=== PATIENT | male | born 2000 | race Caucasian/White ===

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

== ENCOUNTER → 2021-03-25 15:50 | Outpatient (CLI) | payer OTHER, SELFPAY ==
[2021-03-25 17:08] LABS: COVID19 -Nasal RAPID POSITIVE (Negative)
== END ==
PROVIDERS: Referring Provider Nurse Practitioner Family; Visit Provider Nurse Practitioner Family
DX: U07.1 COVID-19 (principal); Z20.822 Contact with and (suspected) exposure to COVID-19
CPT/HCPCS: 87635

== ENCOUNTER 2021-08-01 10:21 | Emergency (ER) | payer OTHER, SELFPAY ==
[2021-08-01 10:35] VITALS: TEMP 36.8
[2021-08-01 11:00] VITALS: BP 118/65; PULSE 87; RESP 18; TEMP 36.8; O2SAT 99
[2021-08-01 11:16] LABS: Add Manual Diff / Slide Review NO; Basophils Absolute Auto 0 /uL (0-100); Basophils Percent Auto 0.3 % (0-2); Eosinophils Absolute Auto 0 /uL (0-450); Eosinophils Percent Auto 0.1 % (2-4); Hematocrit 38.7 % (41-53); Hemoglobin 14.1 g/dL (13.5-17.5); Lymphocytes Absolute Auto 1000 /uL (1100-4500); Lymphocytes Percent Auto 16.7 % (25-40); Mean Corpuscular HGB Conc 36.5 % (30-36); Mean Corpuscular Hemoglobin 29.8 PG (26-34); Mean Corpuscular Volume 81.7 fL (80-100); Monocytes Absolute Auto 1000 /uL (0-900); Monocytes Percent Auto 16.8 % (3-14); Neutrophils Absolute Auto 3900 /uL (1500-7000); Neutrophils Percent Auto 66.1 % (50-75); Platelet Count 244 X10^3/uL (150-400); Red Blood Cell Count 4.74 X10^6/uL (4.5-5.9); Red Cell Distribution Width 12.8 % (11.6-14.8); White Blood Cell Count 5.9 X10^3/uL (4.5-11.0)
[2021-08-01] MEDS: ONDANSETRON 4 MG/2 ML INJ IV (11:19)
[2021-08-01 11:32] LABS: Alanine Aminotransferase 16 IU/L (<50); Albumin 4.8 g/dL (3.5-5.0); Albumin Globulin Ratio 1.1 (1.0-2.8); Alkaline Phosphatase 98 U/L (38-126); Aspartate Aminotransferase 24 IU/L (17-59); BUN Creatinine Ratio 21.8 (6-22); Bilirubin Total 1.7 mg/dL (0.2-1.3); Blood Urea Nitrogen 17 mg/dL (9-20); Calcium 9.5 mg/dL (8.4-10.2); Carbon Dioxide 25 mmol/L (22-32); Chloride 100 mmol/L (98-107); Estimated Glomerular Filt Rate > 60 mL/min (>60); Globulin 4.4 g/dL (1.7-4.1); Glucose 122 mg/dL (70-100); HEMOLYSIS < 15 (0-50); Lipase 40 U/L (23-300); Sodium 136 mmol/L (137-145); Total Protein 9.2 g/dL (6.3-8.2)
--- NOTE | 2021-08-01 11:32 | ED_ITS ---
HPI - Abdominal Pain General Chief Complaint: Abdominal Pain Stated Complaint: throwing up 2 xdays fever Time Seen by Provider: 08/01/21 11:00 Source: patient Mode of arrival: Ambulatory Limitations: no limitations History of Present Illness HPI narrative: This is a 20-year-old male with history of being on Humira for eczema, patient stopped 3 months ago and started 1st dose of strongly ora for psoriasis. He has not actually had his 1st injection. Patient is not on any other daily medications. He, his entire family including his 2, and baby have all had diarrhea starting Thursday. Patient had a temperature of 101? F at home. He has had nausea and vomiting. He had pain immediately after vomiting but does not have persistent abdominal pain. No chest pain or shortness of breath. No black or bloody stools. No blood in his emesis. Patient states little bit decreased urine output but is still urinating. Denies any drug allergies. He does smoke tobacco, occasional marijuana. Related Data Home Medications Medication Instructions Recorded Confirmed adalimumab 40 mg/0.8 mL 40 mg SUBCUT Q2W 05/10/19 03/25/21 subcutaneous syringe kit (Humira) Previous Rx's Medication Instructions Recorded mupirocin 2 % topical ointment 1 applic TOP TID #30 gram 01/25/20 ondansetron 4 mg disintegrating 4 mg PO QID PRN #10 tab 08/01/21 tablet Allergies Allergy/AdvReac Type Severity Reaction Status Date / Time No Known Drug Allergies Allergy Verified 01/25/20 14:52 Review of Systems Review of Systems ROS Unobtainable: All systems reviewed & are unremarkable except as noted in HPI and below Patient History Medical History Cellulitis Social History Smoking Status: Current every day smoker Smoking Status: Current every day smoker alcohol intake frequency: other Substance Use Type: marijuana Exam Narrative Exam Narrative: GENERAL: Alert and oriented x three, male in mild distress. HEENT: Head normocephalic, atraumatic, EOMI, pupils reactive, face symmetric, moist mucous membranes NECK: Supple, full range of motion CARDIOVASCULAR: Regular rate and rhythm without murmurs, rubs or gallops. RESPIRATORY: Breath sounds equal bilaterally, no wheezes rales or rhonchi. ABDOMEN: Soft, nontender. Nondistended. Normoactive bowel sounds all 4 quadrants. No guarding or rebound, rigidity, no mass : No CVA tenderness EXTREMITIES: Normal range of motion, no clubbing or edema. Neurovascularly intact NEUROLOGICAL: Cranial nerves II through XII grossly intact. Moving all ext remities SKIN: Warm, dry, no petechiae, no rashes or lesions. Initial Vital Signs Initial Vital Signs: Vital Signs Temperature 98.2 F 08/01/21 10:35 Course Orders Ordered: Discontinued Medications Sodium Chloride (Normal Saline 0.9%) 1,000 mls @ 1,000 mls/hr IV BOLUS ONE Stop: 08/01/21 13:19 Last Infusion: 08/01/21 13:20 Dose: 0 mls/hr Documented by: Admin: 08/01/21 12:52 Dose: 1,000 mls/hr Documented by: BG Ondansetron HCl (Ondansetron 4 Mg/2 Ml Inj) 4 mg IV NOW ONE Stop: 08/01/21 11:01 Last Admin: 08/01/21 11:19 Dose: 4 mg Documented by: BG Reevaluation(s) Reevaluation #1: Patient is feeling much better after fluids. Time: 13:25 Vital Signs Vital signs: Vital Signs - 8 hr 08/01/21 10:35 08/01/21 11:00 08/01/21 12:00 Temperature 98.2 F 98.2 F 98.2 F Pulse Rate 87 70 Respiratory Rate 18 18 Blood Pressure 118/65 134/74 Pulse Oximetry 99 98 08/01/21 13:00 Temperature 98.2 F Pulse Rate 70 Respiratory Rate 18 Blood Pressure 130/70 Pulse Oximetry 99 MDM - Abdominal Pain Lab Data Result diagrams: 08/01/21 11:12 08/01/21 11:12 Labs: Lab Results 08/01/21 08/01/21 08/01/21 Range/Units 11:05 11:12 11:12 WBC 5.9 (4.5-11.0) X10^3/uL RBC 4.74 (4.5-5.9) X10^6/uL Hgb 14.1 (13.5-17.5) g/dL Hct 38.7 L (41-53) % MCV 81.7 (80-100) fL MCH 29.8 (26-34) PG MCHC 36.5 H (30-36) % RDW 12.8 (11.6-14.8) % Plt Count 244 (150-400) X10^3/uL Neut % (Auto) 66.1 (50-75) % Lymph % (Auto) 16.7 L (25-40) % [place] % (Auto) 16.8 H (3-14) % Eos % (Auto) 0.1 L (2-4) % Baso % (Auto) 0.3 (0-2) % Neut # (Auto) 3900 (7116-3714) /uL Lymph # (Auto) 1000 L (8284-1801) /uL [place] # (Auto) 1000 H (0-900) /uL Eos # (Auto) 0 (0-450) /uL Baso # (Auto) 0 (0-100) /uL Sodium 136 L (137-145) mmol/L Potassium 4.0 (3.4-5.1) mmol/L Chloride 100 (98-107) mmol/L Carbon Dioxide 25 (22-32) mmol/L BUN 17 (9-20) mg/dL Creatinine 0.78 (0.66-1.25) mg/dL Estimated GFR > 60 (>60) mL/min BUN/Creatinine Ratio 21.8 (6-22) Glucose 122 H (70-100) mg/dL Calcium 9.5 (8.4-10.2) mg/dL Total Bilirubin 1.7 H (0.2-1.3) mg/dL AST 24 (17-59) IU/L ALT 16 (<50) IU/L Alkaline Phosphatase 98 (38-126) U/L Total Protein 9.2 H (6.3-8.2) g/dL Albumin 4.8 (3.5-5.0) g/dL Globulin 4.4 H (1.7-4.1) g/dL Albumin/Globulin Ratio 1.1 (1.0-2.8) Lipase 40 (23-300) U/L Urine RBC (0-5/HPF) Urine WBC (0-5/HPF) Ur Squamous Epith Cells (0-5/HPF) Urine Bacteria (None) Ur Culture Indicated? SARS-CoV-2 (PCR) Negative (Negative) 08/01/21 Range/Units 12:09 WBC (4.5-11.0) X10^3/uL RBC (4.5-5.9) X10^6/uL Hgb (13.5-17.5) g/dL Hct (41-53) % MCV (80-100) fL MCH (26-34) PG MCHC (30-36) % RDW (11.6-14.8) % Plt Count (150-400) X10^3/uL Neut % (Auto) (50-75) % Lymph % (Auto) (25-40) % [place] % (Auto) (3-14) % Eos % (Auto) (2-4) % Baso % (Auto) (0-2) % Neut # (Auto) (5735-8230) /uL Lymph # (Auto) (6105-3644) /uL [place] # (Auto) (0-900) /uL Eos # (Auto) (0-450) /uL Baso # (Auto) (0-100) /uL Sodium (137-145) mmol/L Potassium (3.4-5.1) mmol/L Chloride (98-107) mmol/L Carbon Dioxide (22-32) mmol/L BUN (9-20) mg/dL Creatinine (0.66-1.25) mg/dL Estimated GFR (>60) mL/min BUN/Creatinine Ratio (6-22) Glucose (70-100) mg/dL Calcium (8.4-10.2) mg/dL Total Bilirubin (0.2-1.3) mg/dL AST (17-59) IU/L ALT (<50) IU/L Alkaline Phosphatase (38-126) U/L Total Protein (6.3-8.2) g/dL Albumin (3.5-5.0) g/dL Globulin (1.7-4.1) g/dL Albumin/Globulin Ratio (1.0-2.8) Lipase (23-300) U/L Urine RBC 1-5/hpf (0-5/HPF) Urine WBC 5-10/hpf H (0-5/HPF) Ur Squamous Epith Cells 0-1 /hpf (0-5/HPF) Urine Bacteria Few (2-10) H (None) Ur Culture Indicated? Specimen cultured SARS-CoV-2 (PCR) (Negative) Point of care testing: Urine Dip Bedside Urine Glucose Negative Bedside Urine Bilirubin + 1 Bedside Urine Ketone + 15 Urine Specific [place] 1.020 Bedside Urine Occult Blood +/- Bedside Urine pH 6.0 Bedside Urine Protein + 30 Bedside Urine Urobilinogen - Negative Bedside Urine Nitrite - Negative Bedside Urine Leukocytes + 70 Esterase ECG Data Attestation: I personally reviewed and interpreted this ECG as follows: Interpretation: Sinus rhythm with sinus arrhythmia. Rate 88 MI 110 QRS 82 QTC 404. No acute ST elevation depression appreciated. MDM Narrative Medical decision making narrative: This is a 20-year-old male with nausea and vomiting and diarrhea for the last 2 days patient or family has had similar symptoms. Suspect viral illness. Labs show slightly elevated bilirubin but no other acute changes he does not have any persistent abdominal pain I suspicion for gallstones or other acute intra-abdominal process is low. COVID swab is negative. Patient did have some ketones in urine, leukocyte esterase was present but patient is asymptomatic from a urinary standpoint. Patient was given fluids and Zofran and feels much better. Plan for as needed Zofran and return precautions. Discharge Plan Departure Patient Disposition: Home Clinical Impression: Nausea, vomiting and diarrhea Instructions: Nausea and Vomiting-Adult Activity Restrictions/Additional Instructions: Follow-up with your physician if symptoms are not improving. You may take Zofran 1 tablet every 6 hours as needed for nausea. Prescription sent to [facility] in [place]. Return for fevers that are persistent, increasing or new abdominal pain, persist ent vomiting, black or bloody stools, passing out, no urine output or other new or concerning symptoms. Prescriptions: New ondansetron 4 mg tablet,disintegrating 4 mg PO QID PRN (Reason: nausea and vomiting) Qty: 10 0RF No Action mupirocin 2 % ointment 1 applic TOP TID Qty: 30 0RF Humira 40 mg/0.8 mL syringe kit 40 mg SUBCUT Q2W 0RF Referrals: Miscellaneous,Doctor, [Primary Care Provider] -
[2021-08-01 11:43] LABS: COVID19 -Nasal RAPID Negative (Negative)
[2021-08-01 12:00] VITALS: BP 134/74; PULSE 70; RESP 18; TEMP 36.8; O2SAT 98
[2021-08-01 12:49] LABS: Bacteria Urine Few (2-10); Culture Indicated Urine Specimen Cultured; RBC Urine 1-5/HPF (0-5/HPF); Squamous Epithelial Cell Urine 0-1 /HPF (0-5/HPF); WBC Urine 5-10/HPF (0-5/HPF)
[2021-08-01] MEDS: SODIUM CHLORIDE 0.9% 1,000 ML 1000 ML IV (12:52)
[2021-08-01 13:00] VITALS: BP 130/70; PULSE 70; RESP 18; TEMP 36.8; O2SAT 99
== END 2021-08-01 13:48 | disposition home or self-care (01) ==
PROVIDERS: Emergency Provider Emergency Medicine
DX: R11.2 Nausea with vomiting, unspecified (principal); R50.9 Fever, unspecified; R19.7 Diarrhea, unspecified; R10.9 Unspecified abdominal pain; Z20.822 Contact with and (suspected) exposure to COVID-19
CPT/HCPCS: 36415; 80053; 81003; 81015; 83690; 85025; 87086; 87635; 93005; 93010; 96374; 99284; C9803; J2405

== ENCOUNTER → 2024-06-07 11:40 | Outpatient (CLI) | payer OTHER, SELFPAY | PROVIDERS: Visit Provider Physician Assistant Surgical | DX: J02.9 Acute pharyngitis, unspecified (principal) | CPT/HCPCS: 87070; 87077; 87147 ==

== ENCOUNTER 2024-06-21 14:26 | Emergency (ER) | payer OTHER, SELFPAY ==
[2024-06-21 14:30] VITALS: BP 130/87; PULSE 102; RESP 18; TEMP 36.8; O2SAT 99; BMI 19.3
[2024-06-21 15:04] LABS: Add Manual Diff / Slide Review NO; Basophils Absolute Auto 0 /uL (0-100); Basophils Percent Auto 0.4 % (0-2); Eosinophils Absolute Auto 0 /uL (0-450); Eosinophils Percent Auto 0.5 % (2-4); Hemoglobin 14.9 g/dL (13.5-17.5); Lymphocytes Absolute Auto 2000 /uL (1100-4500); Lymphocytes Percent Auto 26.1 % (25-40); Mean Corpuscular HGB Conc 35.4 % (30-36); Mean Corpuscular Hemoglobin 29.1 PG (26-34); Mean Corpuscular Volume 82.2 fL (80-100); Monocytes Absolute Auto 900 /uL (0-900); Monocytes Percent Auto 12.1 % (3-14); Neutrophils Absolute Auto 4700 /uL (1500-7000); Neutrophils Percent Auto 60.9 % (50-75); Platelet Count 288 X10^3/uL (150-400); Red Blood Cell Count 5.11 X10^6/uL (4.5-5.9); White Blood Cell Count 7.7 X10^3/uL (4.5-11.0)
[2024-06-21] MEDS: ONDANSETRON 4 MG/2 ML INJ IV (15:09)
[2024-06-21] MEDS: SODIUM CHLORIDE 0.9% 1,000 ML 1000 ML IV (15:09)
[2024-06-21 15:16] LABS: Alanine Aminotransferase 33 IU/L (<50); Albumin 4.8 g/dL (3.5-5.0); Alkaline Phosphatase 107 U/L (38-126); Aspartate Aminotransferase 38 IU/L (17-59); BUN Creatinine Ratio 18.5 (6-22); Bilirubin Total 2.5 mg/dL (0.2-1.3); Blood Urea Nitrogen 15 mg/dL (9-20); Calcium 10.2 mg/dL (8.4-10.2); Carbon Dioxide 19 mmol/L (22-32); Chloride 101 mmol/L (98-107); Estimated Glomerular Filt Rate > 60 mL/min (>60); Globulin 4.6 g/dL (1.7-4.1); Glucose 111 mg/dL (70-100); HEMOLYSIS < 15 (0-50); Lipase 85 U/L (23-300); Potassium 3.5 mmol/L (3.4-5.1); Sodium 138 mmol/L (137-145); Total Protein 9.4 g/dL (6.3-8.2)
[2024-06-21 15:47] LABS: Influenza A - CEPHEID Flu A NEGATIVE (NEGATIVE); Influenza B - CEPHEID Flu B NEGATIVE (NEGATIVE); Respiratory Syncytial Virus Negative (Negative)
[2024-06-21 15:48] LABS: COVID-19 CEPHEID 4-PLEX PCR Negative (Negative)
--- NOTE | 2024-06-21 16:07 | DI.CT.S_ITS ---
PROCEDURE: CT ABDOMEN PELVIS W CON INDICATIONS: RLQ pain, N/V/D TECHNIQUE: After the administration of intravenous contrast, axial sections acquired from the lung bases to the pubic symphysis. Coronal and sagittal reformats were performed. For radiation dose reduction, the following was used: automated exposure control, adjustment of mA and/or kV according to patient size. COMPARISON: None. FINDINGS: Image quality: Diagnostic. Lower Chest: No significant findings. ABDOMEN: Liver: No solid mass. Gallbladder: No radiopaque gallstones or wall thickening. Biliary ducts: No biliary dilation. Pancreas: No ductal dilation. Spleen: Size is within normal limits. Adrenal Glands: No adrenal nodules. Kidneys and Ureters: No hydronephrosis. No solid mass. No complex renal cystic lesion which requires follow up. Stomach and Bowel: Liquid stool material is seen throughout the colon and rectum with air-fluid levels. Nondilated fluid-filled loops of small bowel in the mid to lower abdomen. Appendix is not well visualized, but no pericecal inflammatory changes. Peritoneum: No abnormal intraperitoneal fluid. No free air. Ventral Wall: No significant ventral hernia. Abdominal Nodes: No retroperitoneal or mesenteric adenopathy by size criteria. Vessels: Aorta and inferior vena cava are normal in size. PELVIS: Pelvic Organs: Unremarkable. Bladder: No bladder wall thickening, accounting for underdistention. Pelvic Nodes: No enlarged lymph nodes. Miscellaneous: No inguinal hernias are seen. Bones: Q mildly irregular appearance of the sacroiliac joints bilaterally with suspected small osseous erosions that may indicate sacroiliitis. IMPRESSION: 1. Prominent but nondilated fluid-filled loops of small and large bowel are suspicious for a nonspecific enterocolitis, although other causes of diarrhea are not excluded. 2. Appendix not well visualized, but no pericecal inflammatory changes are seen in the right abdomen. 3. Suspected small osseous erosions along the sacroiliac joints bilaterally that may indicate sacroiliitis. Approved by: Norberto Frank M.D. on 06/21/2024 at 16:50
[2024-06-21] MEDS: HYOSCYAMINE 0.125 MG TABLET PO (16:32)
[2024-06-21 16:36] LABS: Adenovirus F 40/41 Not Detected (Not Detect); Astrovirus Detected (Not Detect); Campylobacter Not Detected (Not Detect); Clostridium difficile toxin AB Not Detected (Not Detect); Cryptosporidium Not Detected (Not Detect); Cyclospora cayetanensis Not Detected (Not Detect); Entamoeba histolytica Not Detected (Not Detect); Enteroaggregative E.coli Not Detected (Not Detect); Enteropathogenic E.coli Not Detected (Not Detect); Enterotoxigenic E.coli It/st Not Detected (Not Detect); Giardia lamblia Not Detected (Not Detect); Norovirus GI/GII Not Detected (Not Detect); Plesiomonsa shigelloides Not Detected (Not Detect); Rotavirus A Not Detected (Not Detect); Salmonella Not Detected (Not Detect); Sapovirus Not Detected (Not Detect); Shiga-like toxin-prod E.coli Not Detected (Not Detect); Shigella/Enteroinvasive E.coli Not Detected (Not Detect); Vibrio Not Detected (Not Detect); Vibrio cholerae Not Detected (Not Detect); Yersinia enterocolitica Not Detected (Not Detect)
--- NOTE | 2024-06-21 17:05 | ED.NAVMDI ---
HPI - Nausea/Vomiting/Diarrhea <Michelle Barry PA-C - Last Filed: 06/21/24 17:25> General Chief complaint: Nausea/Vomiting/Diarrhea Stated complaint: N/V/D Time Seen by Provider: 06/21/24 15:53 History of Present Illness HPI Narrative: 23-year-old male with past medical history psoriatic arthritis, IBD, on Stelara every 8 weeks presents to the ED with 3 days of nausea, vomiting, watery diarrhea. No fever, chills, chest pain, shortness of breath, dysuria, lightheadedness, dizziness, syncope. Patient states that his symptoms started after he spent the day at the [place] with his two little children. Symptoms started with a watery diarrhea as well as vomiting. Patient states that his diarrhea stopped at mid day yesterday, however he is continued to vomit intractably. Related Data Home Medications Medication Instructions Recorded Confirmed ustekinumab 90 mg/mL subcutaneous mg SUBCUT 06/21/24 06/21/24 syringe (Stelara) Previous Rx's Medication Instructions Recorded hyoscyamine sulfate 0.125 mg 0.125 mg PO BID-QID #20 tabs 06/21/24 tablet (Levsin) hyoscyamine sulfate 0.125 mg 0.125 mg PO BID-QID PRN dyspepsia 06/21/24 tablet (Oscimin) #20 tabs ondansetron 4 mg disintegrating 4 mg PO Q8H PRN nausea and 06/21/24 tablet vomiting #10 tabs ondansetron 4 mg disintegrating 4 mg PO Q8H PRN nausea and 06/21/24 tablet vomiting #10 tabs Allergies Allergy/AdvReac Type Severity Reaction Status Date / Time No Known Drug Allergies Allergy Verified 06/21/24 14:18 Review of Systems <Michelle Barry PA-C - Last Filed: 06/21/24 17:25> Constitutional Constitutional: Denies chills, Denies fatigue, Denies fever(s), Denies frequent falls, Denies lethargy and Denies weakness Eyes Eyes: Denies change in vision, Denies eye discharge, Denies irritation and Denies loss of vision ENT Ears, Nose, Mouth, and Throat: Denies change in voice, Denies dizziness, Denies neck pain, Denies sore throat and Denies throat swelling Cardiovascular Cardiovascular: Denies chest pain, Denies irregular heart rhythm, Denies lightheadedness, Denies palpitations, Denies dyspnea, Denies dyspnea on exertion and Denies orthopnea Respiratory Respiratory: Denies cough, Denies dyspnea, Denies dyspnea on exertion and Denies wheezing Gastrointestinal Gastrointestinal: Denies abdominal pain, Denies change in bowel habits, Reports cramping, Reports diarrhea, Reports nausea and Reports vomiting Musculoskeletal Musculoskeletal: Denies neck pain and Denies numbness Integumentary/Breasts Skin/Breast: Denies pruritus, Denies erythema, Denies rash and Denies wounds Neurologic Neurologic: Denies behavioral changes, Denies confusion, Denies dizziness, Denies frequent falls, Denies loss of vision, Denies numbness and Denies weakness Psychiatric Psychiatric: Denies anxiety, Denies behavioral changes, Denies confusion, Denies depression, Denies homicidal ideation and Denies suicidal ideation Endocrine Endocrine: Denies fatigue, Denies flushing and Denies palpitations Hematologic/Lymphatic Hematologic/Lymphatic: Denies easy bruising Allergic/Immunologic Allergic/Immunologic: Denies urticaria, Denies throat swelling and Denies wheezing Patient History <Michelle Barry PA-C - Last Filed: 06/21/24 17:25> Medical History Cellulitis Social History Smoking Status: Current every day smoker Smoking Status: Current every day smoker tobacco type: vaping alcohol intake frequency: other Exam <Michelle Barry PA-C - Last Filed: 06/21/24 17:25> Narrative Exam Narrative: Const General:?cooperative, healthy appearing and comfortable [facility] Head:?normal to inspection Ears:?hearing grossly normal bilaterally Nose:?external nose normal Face and sinus:?normal facial exam and sinuses nontender Mouth:?oral mucosae normal Throat:?posterior oropharynx normal Eyes General:?appearance normal, both eyes and all related structures Neck Neck:?normal visual inspection and no lymphadenopathy noted Resp Effort & Inspection:?normal respiratory effort Auscultation:?clear to auscultation bilaterally Cardio Rate:?regular rate Rhythm:?regular rhythm GI Abdomen is soft, nondistended. Tender to palpation in the right lower quadrant. Neuro General:?patient alert, patient awake and patient oriented x3 Initial Vital Signs Initial Vital Signs: Vital Signs Temperature 98.2 F 06/21/24 14:30 Pulse Rate 102 H 06/21/24 14:30 Respiratory Rate 18 06/21/24 14:30 Blood Pressure 130/87 06/21/24 14:30 Pulse Oximetry 99 06/21/24 14:30 Oxygen Delivery Method Room Air 06/21/24 14:30 <Ok Barnett MD - Last Filed: 06/22/24 07:08> Initial Vital Signs Initial Vital Signs: Vital Signs Temperature 98.2 F 06/21/24 14:30 Pulse Rate 102 H 06/21/24 14:30 Respiratory Rate 18 06/21/24 14:30 Blood Pressure 130/87 06/21/24 14:30 Pulse Oximetry 99 06/21/24 14:30 Oxygen Delivery Method Room Air 06/21/24 14:30 Course <Michelle Barry PA-C - Last Filed: 06/21/24 17:25> Orders Ordered: Discontinued Medications Hyoscyamine (Hyoscyamine 0.125 Mg Tablet) 0.125 mg PO NOW ONE Stop: 06/21/24 16:09 Last Admin: 06/21/24 16:32 Dose: 0.125 mg Documented By: PEDRO Sodium Chloride (Normal Saline 0.9%) 1,000 mls @ 1,000 mls/hr IV BOLUS ONE Stop: 06/21/24 16:05 Last Infusion: 06/21/24 17:35 Dose: Infused Documented By: Admin: 06/21/24 15:09 Dose: 1,000 mls/hr Documented By: DANNY Ondansetron HCl (Ondansetron 4 Mg/2 Ml Inj) 4 mg IV NOW PRN PRN Reason: Nausea And Vomiting Last Admin: 06/21/24 15:09 Dose: 4 mg Documented By: DANNY Ondansetron HCl (Ondansetron 4 Mg Odt) 4 mg SL NOW PRN PRN Reason: Nausea And Vomiting Vital Signs Vital signs: Vital Signs - 8 hr 06/21/24 14:30 Temperature 98.2 F Pulse Rate 102 H Respiratory Rate 18 Blood Pressure 130/87 Pulse Oximetry 99 Oxygen Delivery Method Room Air <Ok Barnett MD - Last Filed: 06/22/24 07:08> Orders Ordered: Discontinued Medications Hyoscyamine (Hyoscyamine 0.125 Mg Tablet) 0.125 mg PO NOW ONE Stop: 06/21/24 16:09 Last Admin: 06/21/24 16:32 Dose: 0.125 mg Documented By: PEDRO Sodium Chloride (Normal Saline 0.9%) 1,000 mls @ 1,000 mls/hr IV BOLUS ONE Stop: 06/21/24 16:05 Last Infusion: 06/21/24 17:35 Dose: Infused Documented By: Admin: 06/21/24 15:09 Dose: 1,000 mls/hr Documented By: DANNY Ondansetron HCl (Ondansetron 4 Mg/2 Ml Inj) 4 mg IV NOW PRN PRN Reason: Nausea And Vomiting Last Admin: 06/21/24 15:09 Dose: 4 mg Documented By: DANNY Ondansetron HCl (Ondansetron 4 Mg Odt) 4 mg SL NOW PRN PRN Reason: Nausea And Vomiting Vital Signs Vital signs: Vital Signs - 8 hr 06/21/24 14:30 Temperature 98.2 F Pulse Rate 102 H Respiratory Rate 18 Blood Pressure 130/87 Pulse Oximetry 99 Oxygen Delivery Method Room Air MDM - Nausea/Vomiting/Diarrhea <Michelle Barry PA-C - Last Filed: 06/21/24 17:25> Lab Data 06/21/24 14:50 06/21/24 14:50 Labs: Lab Results 06/21/24 Range/Units 14:50 WBC 7.7 (4.5-11.0) X10^3/uL RBC 5.11 (4.5-5.9) X10^6/uL Hgb 14.9 (13.5-17.5) g/dL Hct 42.0 (41-53) % MCV 82.2 (80-100) fL MCH 29.1 (26-34) PG MCHC 35.4 (30-36) % RDW 13.0 (11.6-14.8) % Plt Count 288 (150-400) X10^3/uL Neut % (Auto) 60.9 (50-75) % Lymph % (Auto) 26.1 (25-40) % [place] % (Auto) 12.1 (3-14) % Eos % (Auto) 0.5 L (2-4) % Baso % (Auto) 0.4 (0-2) % Neut # (Auto) 4700 (7983-8540) /uL Lymph # (Auto) 2000 (6471-5055) /uL [place] # (Auto) 900 (0-900) /uL Eos # (Auto) 0 (0-450) /uL Baso # (Auto) 0 (0-100) /uL Sodium 138 (137-145) mmol/L Potassium 3.5 (3.4-5.1) mmol/L Chloride 101 (98-107) mmol/L Carbon Dioxide 19 L (22-32) mmol/L BUN 15 (9-20) mg/dL Creatinine 0.81 (0.66-1.25) mg/dL Estimated GFR > 60 (>60) mL/min BUN/Creatinine Ratio 18.5 (6-22) Glucose 111 H (70-100) mg/dL Calcium 10.2 (8.4-10.2) mg/dL Total Bilirubin 2.5 H (0.2-1.3) mg/dL AST 38 (17-59) IU/L ALT 33 (<50) IU/L Alkaline Phosphatase 107 (38-126) U/L Total Protein 9.4 H (6.3-8.2) g/dL Albumin 4.8 (3.5-5.0) g/dL Globulin 4.6 H (1.7-4.1) g/dL Albumin/Globulin Ratio 1.0 (1.0-2.8) Lipase 85 (23-300) U/L Stl C. cayetanensis PCR Not detected (Not Detect) Stool Rotavirus (PCR) Not detected (Not Detect) Stool Adenovirus (PCR) Not detected (Not Detect) Stool Astrovirus (PCR) Detected (Not Detect) Stool Cryptosporidium PCR Not detected (Not Detect) Stl E.coli Shiga Tox PCR Not detected (Not Detect) St Sh/Enteroin Ecoli PCR Not detected (Not Detect) Stl Enterotoxigenic E PCR Not detected (Not Detect) Stool EPEC (PCR) Not detected (Not Detect) Stl E. histolytica PCR Not detected (Not Detect) Stool Giardia Lamblia PCR Not detected (Not Detect) Stool Sapovirus (PCR) Not detected (Not Detect) Stl P. shigelloides PCR Not detected (Not Detect) St Y.enterocolitica PCR Not detected (Not Detect) Stool Vibrio (PCR) Not detected (Not Detect) Stl Vibrio cholerae PCR Not detected (Not Detect) Stl Enteroaggr Ecoli PCR Not detected (Not Detect) Stl Norovirus GI/GII PCR Not detected (Not Detect) Campylobacter (PCR) Not detected (Not Detect) C. difficile Tox (PCR) Not detected (Not Detect) SARS-CoV-2 (PCR) Negative (Negative) Influenza A (RT-PCR) Flu a negative (NEGATIVE) Influenza B (RT-PCR) Flu b negative (NEGATIVE) RSV (PCR) Negative (Negative) Salmonella (PCR) Not detected (Not Detect) MDM Narrative Medical decision making narrative: 23-year-old male with past medical history psoriatic arthritis, IBD, on Stelara every 8 weeks presents to the ED with 3 days of nausea, vomiting, watery diarrhea. Concern for exacerbation of Crohn's with complications versus gastroenteritis versus bowel obstruction versus other. Labs were obtained, which showed isolated bilirubinemia at 2.5. It is noted that patient had a elevated bilirubin of 1.7 at a prior visit in 2021 as well. All other labs within normal limits. Respiratory panel was negative for COVID-19, influenza, RSV. GI panel positive for stool Domenico virus. Patient's symptoms markedly improved with IV fluids, Zofran, Levsin. Discussed findings with patient. Prescribed Zofran, Levsin for symptoms. Recommend good hydration and easily digestible foods. Recommend follow-up with PCP/[facility] specialist regarding the elevated bilirubin. ED return precautions were discussed with patient. Patient verbalized understanding. Medical records reviewed: Yes <Ok Barnett MD - Last Filed: 06/22/24 07:08> Lab Data Labs: Lab Results 06/21/24 Range/Units 14:50 WBC 7.7 (4.5-11.0) X10^3/uL RBC 5.11 (4.5-5.9) X10^6/uL Hgb 14.9 (13.5-17.5) g/dL Hct 42.0 (41-53) % MCV 82.2 (80-100) fL MCH 29.1 (26-34) PG MCHC 35.4 (30-36) % RDW 13.0 (11.6-14.8) % Plt Count 288 (150-400) X10^3/uL Neut % (Auto) 60.9 (50-75) % Lymph % (Auto) 26.1 (25-40) % [place] % (Auto) 12.1 (3-14) % Eos % (Auto) 0.5 L (2-4) % Baso % (Auto) 0.4 (0-2) % Neut # (Auto) 4700 (3265-1537) /uL Lymph # (Auto) 2000 (9613-9637) /uL [place] # (Auto) 900 (0-900) /uL Eos # (Auto) 0 (0-450) /uL Baso # (Auto) 0 (0-100) /uL Sodium 138 (137-145) mmol/L Potassium 3.5 (3.4-5.1) mmol/L Chloride 101 (98-107) mmol/L Carbon Dioxide 19 L (22-32) mmol/L BUN 15 (9-20) mg/dL Creatinine 0.81 (0.66-1.25) mg/dL Estimated GFR > 60 (>60) mL/min BUN/Creatinine Ratio 18.5 (6-22) Glucose 111 H (70-100) mg/dL Calcium 10.2 (8.4-10.2) mg/dL Total Bilirubin 2.5 H (0.2-1.3) mg/dL AST 38 (17-59) IU/L ALT 33 (<50) IU/L Alkaline Phosphatase 107 (38-126) U/L Total Protein 9.4 H (6.3-8.2) g/dL Albumin 4.8 (3.5-5.0) g/dL Globulin 4.6 H (1.7-4.1) g/dL Albumin/Globulin Ratio 1.0 (1.0-2.8) Lipase 85 (23-300) U/L Stl C. cayetanensis PCR Not detected (Not Detect) Stool Rotavirus (PCR) Not detected (Not Detect) Stool Adenovirus (PCR) Not detected (Not Detect) Stool Astrovirus (PCR) Detected (Not Detect) Stool Cryptosporidium PCR Not detected (Not Detect) Stl E.coli Shiga Tox PCR Not detected (Not Detect) St Sh/Enteroin Ecoli PCR Not detected (Not Detect) Stl Enterotoxigenic E PCR Not detected (Not Detect) Stool EPEC (PCR) Not detected (Not Detect) Stl E. histolytica PCR Not detected (Not Detect) Stool Giardia Lamblia PCR Not detected (Not Detect) Stool Sapovirus (PCR) Not detected (Not Detect) Stl P. shigelloides PCR Not detected (Not Detect) St Y.enterocolitica PCR Not detected (Not Detect) Stool Vibrio (PCR) Not detected (Not Detect) Stl Vibrio cholerae PCR Not detected (Not Detect) Stl Enteroaggr Ecoli PCR Not detected (Not Detect) Stl Norovirus GI/GII PCR Not detected (Not Detect) Campylobacter (PCR) Not detected (Not Detect) C. difficile Tox (PCR) Not detected (Not Detect) SARS-CoV-2 (PCR) Negative (Negative) Influenza A (RT-PCR) Flu a negative (NEGATIVE) Influenza B (RT-PCR) Flu b negative (NEGATIVE) RSV (PCR) Negative (Negative) Salmonella (PCR) Not detected (Not Detect) Discharge Plan Departure Patient Disposition: Home Clinical Impression: Astrovirus gastroenteritis Instructions: DI for Dehydration -- Adult, DI for Viral Gastroenteritis -- Adult, DI for Vomiting -- Adult Activity Restrictions/Additional Instructions: You were evaluated in the ED today for nausea, vomiting, diarrhea. Your stool was positive for enterovirus, which is contracted through food poisoning. Your CT scan confirms the food poisoning, however no other abnormalities were found. You did have a elevated bilirubin level which was also elevated the last time we saw you in 2021. Please follow-up with your PCP or your specialists at regarding this. You have been prescribed nausea medication and Levsin. Please take those as needed. Please continue to stay well hydrated and eat easily digestible foods. Return to the ED if you have worsening symptoms. Prescriptions: New hyoscyamine sulfate [Oscimin] 0.125 mg tablet 0.125 mg PO BID-QID PRN (Reason: dyspepsia) Qty: 20 0RF ondansetron 4 mg tablet,disintegrating 4 mg PO Q8H PRN (Reason: nausea and vomiting) Qty: 10 0RF hyoscyamine sulfate [Levsin] 0.125 mg tablet 0.125 mg PO BID-QID Qty: 20 0RF ondansetron 4 mg tablet,disintegrating 4 mg PO Q8H PRN (Reason: nausea and vomiting) Qty: 10 0RF No Action Stelara 90 mg/mL syringe SUBCUT Patient Comments: [NO ORIGINAL SIG] Stand Alone Forms: Patient Portal/API/Survey ED Sign-out <Ok Barnett MD - Last Filed: 06/22/24 07:08> Cosign ED Attending Cosignature Attestation: I was immediately available in the department for consultation. This documentation has been reviewed and I agree with assessment and plan. Supervised by Ok Barnett MD
== END 2024-06-21 17:37 | disposition home or self-care (01) ==
PROVIDERS: Emergency Medicine; Emergency Provider Student in an Organized Health Care Education/Training Program
DX: A08.32 Astrovirus enteritis (principal)
CPT/HCPCS: 0241U; 74177; 80053; 83690; 85025; 87507; 96361; 96374; 99284; J2405